=== PATIENT | female | born 1985 | race Caucasian/White ===

== ENCOUNTER 2017-09-13 19:10 | Emergency (ER) | payer MEDICAID ==
[~2017-09-13] VITALS: Ht 152.4 cm; Wt 78.9 kg
[2017-09-13 19:22] VITALS: BP 154/77; Ht 152.4 cm; Wt 78.9 kg
[2017-09-13 20:14] LABS: UA SPECIFIC GRAVITY >=1.030 (1.005-1.035); microscopic required? YES; urine erythrocyte TRACE (NEGATIVE)
== END 2017-09-13 21:19 | disposition home or self-care (01) ==
LOC: ED 19:10
PROVIDERS: Specialist
DX: O26.891 Other specified pregnancy related conditions, first trimester (principal); R11.2 Nausea with vomiting, unspecified; M54.5 Low back pain; R51 Headache; R82.99 Other abnormal findings in urine; Z3A.00 Weeks of gestation of pregnancy not specified

== ENCOUNTER 2017-09-15 19:21 | Emergency (ER) | payer MEDICAID ==
[~2017-09-15] VITALS: Ht 152.4 cm; Wt 78.0 kg
[2017-09-15 19:39] VITALS: Ht 152.4 cm; Wt 78.0 kg
[2017-09-15 22:44] LABS: BASOPHIL % 0.4 % (0-2); PLATELET COUNT 253 x10^3mcL (130-400); RED CELL DISTRIBUTION WIDTH 13.5 % (11.5-14.5)
[2017-09-15 22:55] LABS: UA SPECIFIC GRAVITY >=1.030 (1.005-1.035); microscopic required? YES; urine erythrocyte 1+ (NEGATIVE)
[2017-09-15 23:46] VITALS: BP 127/73
== END 2017-09-15 23:47 | disposition home or self-care (01) ==
LOC: ED 19:21
PROVIDERS: Specialist
DX: O03.9 Complete or unspecified spontaneous abortion without complication (principal)
CPT/HCPCS: 36415